=== PATIENT | male | born 1990 | race Caucasian/White ===

== ENCOUNTER 2022-04-03 23:43 | Emergency (ER) | payer SELFPAY ==
[~2022-04-03] VITALS: Ht 165.1 cm; Wt 63.5 kg
[2022-04-03] MEDS ORDERED: HALOPERIDOL LACTATE 5 MG/1 ML VIAL ONE (23:57)
[2022-04-03] MEDS ORDERED: diphenhydrAMINE 50 MG/1 ML VIAL ONE (23:57)
[2022-04-03] MEDS ORDERED: LORAZEPAM 2 MG/1 ML VIAL ONE (23:58)
[2022-04-04] MEDS ORDERED: LORAZEPAM 2 MG/1 ML VIAL IM ONE
[2022-04-04] MEDS ORDERED: HALOPERIDOL LACTATE 5 MG/1 ML VIAL IM ONE
[2022-04-04] MEDS ORDERED: diphenhydrAMINE 50 MG/1 ML VIAL IM ONE
--- NOTE | 2022-04-04 | NUR ---
Patient BIB [facility] for c/o smoking meth. Per report from rescue, patient was found on side walk by [employer] and stated he smoked meth. Upon arrival, patient is awake, diaphoretic, shaking, reufing to answer any questions, moaning and uncooperative. Suture in right side of face and nose noted. Addendum: 04/04/22 at 0710 by DOV Patient came in with IV 20G SL from paramedics.
--- NOTE | 2022-04-04 00:05 | NUR ---
Seen and examined by ED Dr. Dowd.
[2022-04-04 00:09] LABS: HEMATOCRIT 42.1 % (36.7-47.1); MEAN CORPUSCULAR HEMOGLOBIN 31.4 uug (23.8-33.4); PLATELET COUNT (AUTO) 340 K/uL (152-348)
--- NOTE | 2022-04-04 00:10 | NUR ---
Patient is uncooperative, trying to get out bed multiple times. 4 point velcro restraints applied, CMS intact and checked every 15 minutes. Will continue to monitor closely.
[2022-04-04 00:15] LABS: CREATININE 1.4 mg/dL (0.6-1.3); POTASSIUM 3.8 mmol/L (3.5-5.1)
[2022-04-04 00:37] LABS: *BILIRUBIN,URIN NEGATIVE (NEGATIVE); *BLOOD, URINE NEGATIVE (NEGATIVE); *CLARITY,URINE CLEAR (CLEAR); *COLOR,URINE YELLOW (YELLOW); *KETONES,URINE 1+ (NEGATIVE); *UROBILINOGEN,URINE 0.2 E.U./dl (NORMAL); LEUKOCYTE ESTERASE ,URINE NEGATIVE (NEGATIVE); NITRITE, URINE NEGATIVE (NEGATIVE); UGLUCOSE NEGATIVE (NEGATIVE)
[2022-04-04 00:46] LABS: *AMPHETAMINE, URINE POSITIVE (NEGATIVE); *CANNABINOID, URINE POSITIVE (NEGATIVE); *COCCAINE, URINE NEGATIVE (NEGATIVE); *OPIATE, URINE NEGATIVE (NEGATIVE); *PHENCYCLIDINE SCREEN,URINE NEGATIVE (NEGATIVE)
--- NOTE | 2022-04-04 02:15 | NUR ---
Patient is sleeping, restraints removed. Patient sent for CT scan via gurney, accompanied by 2 rad techs.
--- NOTE | 2022-04-04 02:20 | NUR ---
Patient came back from CT scan.
--- NOTE | 2022-04-04 06:50 | NUR ---
Patient is awake, ambulated to the bathroom with steady gait. Endorsed to TRAVIS Cox RN.
--- NOTE | 2022-04-04 07:02 | NUR ---
Patient discharged to home in stable condition. NAD. Ambulatory with steady gait. Written and verbal after care instructions given. Patient verbalizes understanding of instructions. Stressed follow up or return to ER for worsening s/s. Addendum: 04/04/22 at 0708 by DOV Patient removed IV line 20G SL. Pressure dressing applied to affected site.
[2022-04-04 07:11] VITALS: BP 125/78
[2022-04-04 08:32] LABS: RBC,URINE NONE SEEN /HPF (0-3); WBC,URINE 0-3 /HPF (0-3)
[2022-04-04 08:33] LABS: BACTERIA,URINE FEW /HPF (NONE SEEN); SQUAMOUS EPITHELIAL CELL,UR FEW /HPF (NONE SEEN)
== END 2022-04-04 07:05 | disposition home or self-care (01) ==
LOC: ER 23:45
DX: F15.159 Other stimulant abuse with stimulant-induced psychotic disorder, unspecified (principal); E87.2 Acidosis; I45.10 Unspecified right bundle-branch block; R00.0 Tachycardia, unspecified; Z78.1 Physical restraint status; R03.0 Elevated blood-pressure reading, without diagnosis of hypertension; S01.81XD Laceration without foreign body of other part of head, subsequent encounter; X58.XXXD Exposure to other specified factors, subsequent encounter
CPT/HCPCS: 36415; 70450; 80048; 80307; 81001; 85025; 93005; 96372 ×2; 99285; J1200; J1630; J2060; A4663; C1758